=== PATIENT | female | born 1985 | race Caucasian/White ===

== ENCOUNTER 2017-03-11 05:15 | Inpatient (IN) | payer OTHER ==
[~2017-03-11] VITALS: Ht 180.3 cm; Wt 84.8 kg
[~2017-03-11 05:15] MED LIST: CITRIC ACID/SODIUM CITRATE 30 ML SOLUTION UDCUP PO PRN; METOCLOPRAMIDE HCL 5 MG/ML 2 ML VIAL IVP PRN; OXYTOCIN 30 UNITS/LACT RINGERS 500 ML IV ONE; RINGERS SOLUTION,LACTATED 1,000 ML IV PRN
[2017-03-11] MEDS ORDERED: DINOPROSTONE 10 MG VAGINAL SUPPOSITORY VG ONE (06:15)
[2017-03-11 06:22] LABS: BASOPHILS % (AUTO) 0.6 % (0.0-2.0); EOSINOPHILS % (AUTO) 1.1 % (1.0-6.0); HEMATOCRIT 38.1 % (36-46); HEMOGLOBIN 13.1 g/dL (12.0-16.0); LYMPHOCYTES # (AUTO) 1.6 K/uL (1.0-4.8); MEAN CORPUSCULAR HEMOGLOBIN 32.5 pg (26.0-34.0); MEAN CORPUSCULAR HGB CONC 34.5 G/dL (31.0-37.0); MEAN CORPUSCULAR VOLUME 94 fL (80-100); MONOCYTES # (AUTO) 0.5 K/uL (0.1-1.0); MONOCYTES % (AUTO) 6.4 % (2.0-9.0); NEUTROPHILS # (AUTO) 5.8 K/uL (1.8-7.7); NEUTROPHILS % (AUTO) 71.9 % (40.0-70.0); PLATELET COUNT (AUTO) 146 K/uL (150-450); RED BLOOD CELL COUNT(AUTO) 4.04 MIL/uL (4.00-5.20); RED CELL DISTRIBUTION WIDTH 13.5 % (11.5-14.5)
[2017-03-11] MEDS ORDERED: PREN1TAB80 PO (06:28)
[2017-03-11 06:38] VITALS: BP 122/78
[2017-03-11] MEDS: RINGERS SOLUTION,LACTATED 1,000 ML IV SCH (07:02)
[2017-03-11] MEDS ORDERED: -PHARMACY NOTE- MISC ONE ×2 (18:15)
[2017-03-11] MEDS ORDERED: OXYTOCIN 30 UNITS/LACT RINGERS 500 ML IV PRN (19:05)
[2017-03-11] MEDS: FentaNYL CITRATE-PF 100 MCG/2 ML VIAL IVP PRN ×4 (21:33→22:35)
[2017-03-11] MEDS ORDERED: FentaNYL/BUPIV 0.125%/NS/PF 200 ML ED ONE (22:48)
[2017-03-11] MEDS ORDERED: BUPIVACAINE HCL/PF 0.25% 30 ML VIAL ONE (22:49)
[2017-03-11] MEDS ORDERED: FentaNYL/BUPIV 0.125%/NS/PF 200 ML ED PRN (23:31)
[2017-03-11] MEDS ORDERED: ONDANSETRON HCL 4 MG/2 ML VIAL IVP PRN (23:45)
[2017-03-11] MEDS ORDERED: DiphenhydrAMINE HCL 50 MG/ML VIAL IVP PRN (23:45)
[2017-03-12] MEDS: RINGERS SOLUTION,LACTATED 1,000 ML IV SCH (02:09)
[2017-03-12] MEDS ORDERED: BENZOCAINE 20%/MENTHOL 56 GM SPRAY CANISTER TP PRN (05:15)
[2017-03-12] MEDS ORDERED: LANOLIN 7 GM OINTMENT TP PRN (05:15)
[2017-03-12] MEDS ORDERED: MAGNESIUM HYDROXIDE SUSPENSION 30 ML UDCUP PO PRN (05:15)
[2017-03-12] MEDS ORDERED: GLYCERIN/WITCH HAZEL LEAF 40 PADS JAR TP PRN (05:15)
[2017-03-12] MEDS ORDERED: OxyCODONE HCL/ACETAMINOPHEN 5-325 MG TABLET PO PRN ×2 (05:15)
[2017-03-12] MEDS ORDERED: LIDOCAINE HCL/PF 1% 30 ML VIAL INJ PRN (05:15)
[2017-03-12] MEDS ORDERED: IBUPROFEN 800 MG TABLET PO PRN (05:15)
[2017-03-13 06:21] LABS: BASOPHILS % (AUTO) 0.3 % (0.0-2.0); HEMATOCRIT 32.8 % (36-46); HEMOGLOBIN 11.2 g/dL (12.0-16.0); MEAN CORPUSCULAR HEMOGLOBIN 32.4 pg (26.0-34.0); MEAN CORPUSCULAR HGB CONC 34.1 G/dL (31.0-37.0); MEAN CORPUSCULAR VOLUME 95 fL (80-100); MONOCYTES # (AUTO) 0.6 K/uL (0.1-1.0); MONOCYTES % (AUTO) 6.5 % (2.0-9.0); NEUTROPHILS # (AUTO) 6.1 K/uL (1.8-7.7); NEUTROPHILS % (AUTO) 69.2 % (40.0-70.0); RED BLOOD CELL COUNT(AUTO) 3.45 MIL/uL (4.00-5.20); RED CELL DISTRIBUTION WIDTH 13.7 % (11.5-14.5); WHITE BLOOD COUNT (AUTO) 8.9 K/uL (4.5-11.0)
[2017-03-13] MEDS ORDERED: IBUP-2070 PO (09:31)
[2017-03-13] MEDS ORDERED: DSS100 PO (09:32)
== END 2017-03-13 11:30 | disposition home or self-care (01) | DRG 775 ==
LOC: 4S 05:15 → PREOBSVTOIN 05-02 05:21
PROVIDERS: ADMIT Obstetrics & Gynecology; ATTEND Obstetrics & Gynecology
PROC: 10E0XZZ Delivery of Products of Conception, External Approach (ICD-10-PCS; principal; 2017-03-12)
PROC: 0KQM0ZZ Repair Perineum Muscle, Open Approach (ICD-10-PCS; 2017-03-12)
PROC: 3E0R3BZ Introduction of Anesthetic Agent into Spinal Canal, Percutaneous Approach (ICD-10-PCS; 2017-03-12)
PROC: 00HU33Z Insertion of Infusion Device into Spinal Canal, Percutaneous Approach (ICD-10-PCS; 2017-03-12)
DX: O70.1 Second degree perineal laceration during delivery (principal); Z37.0 Single live birth; Z3A.39 39 weeks gestation of pregnancy
CPT/HCPCS: 86850; 86870; 86880; 86900; 86901; 86905; 86906; 86971; J2590; J3010; J3490; J7120